=== PATIENT | male | born 2000 | race Two or more races ===

== ENCOUNTER 2022-03-05 23:05 | Emergency (ER) | payer BC, MEDICAID ==
[~2022-03-05] VITALS: Ht 180.3 cm; Wt 72.4 kg
[~2022-03-05 23:05] MED LIST: METH10TA4
[2022-03-05 23:45] LABS: INR 1.13 (0.9-1.15)
[2022-03-05 23:47] LABS: Albumin 4.9 g/dL (3.4-5.0); BUN/Creatinine Ratio 20.9; Calcium 9.6 mg/dL (8.5-10.1); Eosinophils # (auto) 0 10 ^3/uL (0-0.8); Hemoglobin 18.2 g/dL (13.5-17.5); Magnesium 2.4 mg/dL (1.6-2.6); Monocytes # (auto) 0.7 10 ^3/uL (0-1.3); White Blood Cell 9.6 10^3/uL (4.4-10.8)
[2022-03-05 23:49] LABS: Basophils # (auto) 0.1 10 ^3/uL (0-0.2); Basophils % (auto) 0.5 % (0.0-2.0); Bilirubin, Total 1.6 mg/dL (0.2-1.0); Eosinophils % (auto) 0.3 % (0.0-7.0); Hematocrit 50.8 % (41.0-53.0); Lymphocytes # (auto) 2.8 10 ^3/uL (0.4-5.4); Lymphocytes % (auto) 29.6 % (10.0-50.0); Mean Corpuscular Hemoglobin 31.2 pg (28.0-32.0); Mean Corpuscular Hgb Conc. 35.8 g/dL (32.0-36.0); Mean Corpuscular Volume 87.2 fL (80.0-100.0); Monocytes % (auto) 7.6 % (0.0-12.0); Neutrophils # (auto) 5.9 10 ^3/uL (1.6-8.6); Nucleated Red Blood Cells % 0.6 %; Red Blood Cells 5.83 10^6/uL (4.5-5.90); Red Cell Distribution Width 12.6 % (11.8-14.3)
[2022-03-06 03:30] VITALS: BP 121/78
== END 2022-03-06 03:34 | disposition home or self-care (01) ==
LOC: ER 23:05
DX: F41.9 Anxiety disorder, unspecified (principal); Z79.899 Other long term (current) drug therapy
CPT/HCPCS: 36415; 71045; 80053; 83735; 83880; 84484; 85025; 85610; 85730; 93005

== ENCOUNTER 2024-03-25 21:09 | Emergency (ER) | payer BC, MEDICAID ==
[~2024-03-25] VITALS: Ht 180.3 cm; Wt 95.9 kg
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
[2024-03-25 22:15] VITALS: BP 138/68; PULSE 91; RESP 17; TEMP 98.6; O2SAT 97
--- NOTE | 2024-03-25 22:16 | DVH ---
CLINICAL HISTORY: HEADACHE TECHNIQUE: Helical imaging carried out from skull base to vertex without intravenous contrast. This e xam was performed according to our departmental dose optimization program. Up-to-date CT equipment an d radiation dose reduction techniques are utilized as appropriate. CTDIVol: [CTDIvol] mGy DLP: 1081.12 mGy-cm WID: COMPARISON: None FINDINGS: The ventricles and subarachnoid spaces are normal in size and configuration. There is no midline mary ft or mass effect. The sharma white matter interfaces are maintained. The basal cisterns are patent. Th ere is no evidence of acute intracranial hemorrhage or extra-axial fluid collection. The mastoid air cells and visualized paranasal sinuses are well-aerated aside from a few aerated secretions in the le ft sphenoid sinus. IMPRESSION: No acute intracranial abnormality.
[2024-03-25] MEDS ORDERED: ACET500T58 PO (22:19)
== END 2024-03-25 22:26 | disposition home or self-care (01) ==
LOC: ER 21:09
DX: G43.909 Migraine, unspecified, not intractable, without status migrainosus (principal)
CPT/HCPCS: 70450